=== PATIENT | male | born 1960 | race Hispanic/Latino ===

== ENCOUNTER 2017-09-03 08:22 | Day surgery (SDC) | payer OTHER ==
[2017-09-02 16:05] VITALS: BMI 28.8
[~2017-09-03 08:22] MED LIST: Cyclopentolate 1% Opth Drop 2 ML BOT FS SCH; EPINEPHrine 0.3 MG, Dextrose 50% 3 ML in Ophthalmic Irrigation Solution 500 ML FS SCH; Phenylephrine 2.5% Ophth Soln 5 ML BOT FS SCH
[2017-09-03] MEDS ORDERED: Phenylephrine 2.5% Ophth Soln 5 ML BOT ONE (08:49)
[2017-09-03] MEDS ORDERED: Cyclopentolate 1% Opth Drop 2 ML BOT ONE (08:49)
[2017-09-03] MEDS ORDERED: Metoprolol Tartrate 5 MG/5 ML VIAL ONE (09:26)
[2017-09-03] MEDS ORDERED: Midazolam HCl 2 mg/2 ml Vial ONE (10:16)
[2017-09-03] MEDS ORDERED: Fentanyl 100 MCG/2 ML VIAL ONE (10:16)
[2017-09-03] MEDS ORDERED: PROPOFOL 20 ML ONE (10:16)
[2017-09-03] MEDS ORDERED: Lidocaine 2% 10 ML INJ ONE (10:16)
--- NOTE | 2017-09-03 12:49 | OP ---
DATE OF PROCEDURE: 09/03/2017 PREOPERATIVE DIAGNOSES: Vitreous hemorrhage and proliferative diabetic retinopathy. POSTOPERATIVE DIAGNOSES: Vitreous hemorrhage and proliferative diabetic retinopathy. PROCEDURES PERFORMED: Pars plana vitrectomy and membrane peel, right eye. SURGEON: Trevor Rico M.D. ANESTHESIA: Local with monitored anesthesia care. COMPLICATIONS: None. PROCEDURE IN DETAIL: The patient was identified in the preoperative holding area. Appropriate informed consent for the planned surgical procedure on the right eye had been obtained. The patient was transported to the operative suite where appropriate cardiopulmonary monitoring was e stablished. Local anesthesia was obtained using retrobulbar and modified Van Lint lid block using 50 /50 mixture of 4% lidocaine and 0.75% bupivacaine. The patient was prepped and draped in the usual s terile manner for ophthalmic surgery on the right eye. Lid speculum was placed in the right eye. Th e 25-gauge trocars were placed in conjunctiva and sclera supratemporally, inferotemporally, and supra nasally. Infusion line was placed inferotemporally. Light pipe and vitreous cutter were inserted in to the eye. Core of vitrectomy was performed. Areas of traction were noted on the nerve and inferio r temporally. These were carefully dissected away from the retina and peeled off the retinal surface . Opacified vitreous was trimmed into the periphery. Velarde retinal photocoagulation was placed into a ll non-macular areas of the retina. No further bleeding was identified. Trocars were removed. Eye was noted to retain pressure well. Retrobulbar Kenalog and subconjunctival Ancef were placed. Atrop ine and antibiotic ointment were placed, and the eye was patched and shielded. The patient was taken to the postoperative recovery unit in good condition having suffered no immediate perioperative comp lications. DISCHARGE INSTRUCTIONS: The patient was instructed to keep patch and shield on, avoid lifting or jalil ding, and follow up in the morning with Dr. Rico.
[2017-09-03] MEDS ORDERED: Lidocaine 1% PF 5 ML VIAL ONE (15:34)
[2017-09-03] MEDS ORDERED: PROPOFOL 200 MG/20 ML VIAL ONE (15:34)
== END 2017-09-03 11:55 | disposition home or self-care (01) ==
LOC: SDC 08:22
PROVIDERS: ATTEND Ophthalmology Retina Specialist
PROC: 08T43ZZ Resection of Right Vitreous, Percutaneous Approach (ICD-10-PCS; principal; 2017-09-03)
PROC: 08QE3ZZ Repair Right Retina, Percutaneous Approach (ICD-10-PCS; principal; 2017-09-03)
PROC: 08NE3ZZ Release Right Retina, Percutaneous Approach (ICD-10-PCS; principal; 2017-09-03)
DX: H43.11 Vitreous hemorrhage, right eye (principal); E11.3591 Type 2 diabetes mellitus with proliferative diabetic retinopathy without macular edema, right eye; Z79.02 Long term (current) use of antithrombotics/antiplatelets; Z79.4 Long term (current) use of insulin; Z79.899 Other long term (current) drug therapy
CPT/HCPCS: 36416; J0171; J2001; J2250; J2704; J3010

== ENCOUNTER 2018-01-08 13:07 | Outpatient (CLI) | payer OTHER | END 2018-01-08 13:08 | disposition home or self-care (01) | LOC: BICULT 13:07 | PROVIDERS: ATTEND Internal Medicine Nephrology | DX: I12.9 Hypertensive chronic kidney disease with stage 1 through stage 4 chronic kidney disease, or unspecified chronic kidney disease (principal); N18.3 Chronic kidney disease, stage 3 (moderate); Z87.442 Personal history of urinary calculi | CPT/HCPCS: 76700; 76770 ==

== ENCOUNTER 2019-03-31 08:00 | Day surgery (SDC) | payer BC ==
[2019-03-30 13:48] VITALS: BMI 31.1
[2019-03-31 08:28] LABS: INR-International Normal Ratio 1.1; Prothrombin Time 14.3 SEC (12.0-14.7)
[2019-03-31 08:30] LABS: #Eosinphils 0.2 thou/uL (0.0-0.7); #Lymphocytes 1.5 thou/uL (1.20-3.40); #Monocytes 0.8 thou/uL (0.11-0.59); #Neutrophils 6.3 thou/uL (1.40-6.50); %Basophils 0.5 % (0.0-1.0); %Eosinophils 2.2 % (0.0-10.0); %Lymphocytes 17.3 % (21.0-51.0); %Monocytes 9.1 % (0.0-10.0); %Neutrophils 70.9 % (42.0-75.0); Hemoglobin 10.2 g/dL (14.0-18.0); Mean Corpuscular HGB CONC 33.2 g/dL (32.0-36.0); Mean Corpuscular Hemoglobin 30.8 pg (27.0-31.0); Mean Corpuscular Volume 92.7 fL (78.0-98.0); Mean Platelet Volume 8.2 fL (7.4-10.4); Platelet Count 250 thou/uL (130-400); RBC Distribution Width 12.6 % (11.5-14.5); Red Blood Cell (RBC) Count 3.32 mill/uL (4.70-6.10); White Blood Cell (WBC) Count 8.9 thou/uL (4.8-10.8)
[2019-03-31 08:38] LABS: PTT 36.4 SEC (22.9-36.1)
--- NOTE | 2019-03-31 14:31 | CT ---
EXAM: CT Renal Perc Biopsy PROVIDED CLINICAL HISTORY: Chronic kidney disease, hypertension, proteinuria. COMPARISON: None TECHNIQUE: The procedure including the risks and complications were explained to the patient, and informed conse nt was obtained. The patient was placed on the CT scan table in the prone position. A limited noncontrasted CT scan was obtained through the level of the kidneys with grid localizer in place. An area overlying the inferior pole left kidney was marked, and the area was then meticulously prepped and draped in the usual sterile fashion. Conscious sedation was performed with intravenous administra tion of fentanyl and Versed. The skin and subcutaneous tissues were infiltrated with buffered 1% lidocaine for local anesthesia at the intended puncture site. A small skin incision was made. A 17-gauge guide needle was advanced followed by noncontrasted axial CT images. This was repeated until the needle was positioned within t he most peripheral aspect of the inferior pole right renal cortex. A total of three 18-gauge core needle biopsy specimens were obtained utilizing coaxial technique. Specimens were evaluated by the pa thologist, and glomeruli were seen within the provided specimens. The needle was removed, and hemostasis was achieved with direct pressure. Follow-up CT imaging demons trates no perinephric hematoma or fluid. Patient's vital signs remained stable during the procedure as well as postprocedure. The patient tolerated the procedure well and without immediate complication . Patient was monitored in the radiology department prior to discharge without complication. IMPRESSION: Technically successful CT-guided percutaneous biopsy inferior pole left kidney.
== END 2019-03-31 13:30 | disposition home or self-care (01) ==
LOC: CT 08:00
PROVIDERS: ATTEND Internal Medicine Nephrology
PROC: 0TB13ZX Excision of Left Kidney, Percutaneous Approach, Diagnostic (ICD-10-PCS; principal; 2019-03-31)
DX: I12.9 Hypertensive chronic kidney disease with stage 1 through stage 4 chronic kidney disease, or unspecified chronic kidney disease (principal); E11.22 Type 2 diabetes mellitus with diabetic chronic kidney disease; E11.21 Type 2 diabetes mellitus with diabetic nephropathy; E11.69 Type 2 diabetes mellitus with other specified complication; N18.4 Chronic kidney disease, stage 4 (severe); D63.1 Anemia in chronic kidney disease; M86.9 Osteomyelitis, unspecified; N20.0 Calculus of kidney; E55.9 Vitamin D deficiency, unspecified; E78.5 Hyperlipidemia, unspecified; F32.9 Major depressive disorder, single episode, unspecified
CPT/HCPCS: 36415; 50200; 77012; 85025; 85610; 85730; 88329

== ENCOUNTER 2019-09-28 12:14 | Outpatient (CLI) | payer BC ==
--- NOTE | 2019-09-28 12:26 | RAD ---
RADIOGRAPH CHEST 2 VIEWS: DATE: 09/28/2019 HISTORY: 59-year-old male with hypertension FINDINGS: The lungs are clear. The cardiomediastinal silhouette and hilar shadows appear normal. There is no pl eural effusion or pneumothorax.. IMPRESSION: Normal
== END 2019-09-28 12:15 | disposition home or self-care (01) ==
LOC: BICRAD 12:14
PROVIDERS: ATTEND Internal Medicine Nephrology
DX: I12.0 Hypertensive chronic kidney disease with stage 5 chronic kidney disease or end stage renal disease (principal); N18.5 Chronic kidney disease, stage 5
CPT/HCPCS: 36415; 71046; 80053; 85025; 86704; 86706; 86803; 87340

== ENCOUNTER 2019-10-12 06:11 | Outpatient (CLI) | payer BC, OTHER ==
[2019-10-12 09:30] LABS: #Basophils 0.1 thou/uL (0.0-0.2); #Eosinphils 0.2 thou/uL (0.0-0.7); #Lymphocytes 1.6 thou/uL (1.20-3.40); #Monocytes 0.6 thou/uL (0.11-0.59); #Neutrophils 5.3 thou/uL (1.40-6.50); %Basophils 0.8 % (0.0-1.0); %Eosinophils 2.4 % (0.0-10.0); %Lymphocytes 20.9 % (21.0-51.0); %Monocytes 7.3 % (0.0-10.0); %Neutrophils 68.6 % (42.0-75.0); Hemoglobin 9.5 g/dL (14.0-18.0); Mean Corpuscular HGB CONC 32.7 g/dL (32.0-36.0); Mean Corpuscular Hemoglobin 30.4 pg (27.0-31.0); Mean Corpuscular Volume 92.9 fL (78.0-98.0); Mean Platelet Volume 8.9 fL (7.4-10.4); Platelet Count 267 thou/uL (130-400); RBC Distribution Width 13.5 % (11.5-14.5); Red Blood Cell (RBC) Count 3.13 mill/uL (4.70-6.10); White Blood Cell (WBC) Count 7.7 thou/uL (4.8-10.8)
[2019-10-12 09:59] LABS: Anion Gap 13 mmol/L (10-20); BUN (Urea Nitrogen) 61 mg/dL (8.4-25.7); Calc. Creatinine Clearance 0 mL/min (70-130); Calcium 7.9 mg/dL (7.8-10.44); Carbon Dioxide 17 mmol/L (22-29); Chloride 115 mmol/L (98-107); Estimated GFR-MDRD 12; Glucose 118 mg/dL (70-105); Potassium 4.8 mmol/L (3.5-5.1); Sodium 140 mmol/L (136-145)
[2019-10-12 17:16] LABS: SARS-CoV-2 MS2 Positive; SARS-CoV-2 N Gene Negative; SARS-CoV-2 S Gene Negative; SARS-CoV-2 orf1ab Negative
== END 2019-10-12 06:12 | disposition home or self-care (01) ==
LOC: LABBT 06:11
PROVIDERS: ATTEND Specialist
DX: Z01.818 Encounter for other preprocedural examination (principal); Z11.59 Encounter for screening for other viral diseases; N18.9 Chronic kidney disease, unspecified
CPT/HCPCS: 80048; 85025; 87635; 93005; 93010; U0003

== ENCOUNTER 2019-10-14 05:50 | Day surgery (SDC) | payer BC ==
[2019-10-12 08:48] VITALS: BMI 30.9
--- NOTE | 2019-10-14 06:40 | HP ---
HISTORY OF PRESENT ILLNESS: Kp Abbott is a 59-year-old male patient, who has not yet started dialysis, is followed by Dr. Mike for his chronic kidney disease. He has chronic kidney disease due to hypertensive and diabetic nephropathy. He is an insulin-dependent diabetic. The patient is interested in peritoneal dialysis. He has seen Margareth at [facility] and began discussions. He is here today to discuss peritoneal dialysis. As stated above, he is left-handed and plan at this time is for laparoscopic peritoneal dialysis catheter and right arm primary fistula. He understands risks and benefits of procedure and consents. ALLERGIES: NONE. SOCIAL HISTORY: Tobacco cessation many years ago. Alcohol, rarely. PAST MEDICAL HISTORY: Hypertension, insulin-dependent diabetes mellitus since 1994, hyperlipidemia, chronic kidney disease, PAD with right lower extremity stent placed to facilitate healing after a toe amputation. PAST SURGICAL HISTORY: Toe amputation, peripheral artery stent, eye surgery. He had a colonoscopy several years ago. FAMILY HISTORY: The patient is , has two children, connected to [facility], [address] [place] [address]. 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 MEDICATIONS: 1. Fish oil. 2. Cinnamon pills. 3. Vitamin C. 4. Aspirin. 5. Lantus insulin a.m. 6. Sertraline 50 mg a day. 7. D3 vitamin. 8. Clonidine 0.1 mg b.i.d. 9. Carvedilol 25 mg b.i.d. 10. Tresiba 10 units a.m. 11. Rosuvastatin 10 mg daily. 12. Amlodipine 10 mg a day. 13. Centrum Silver daily. 14. Plavix 75 mg a day. 15. Glyburide 5 mg b.i.d. 16. Losartan 100 mg daily. 17. Hydralazine 25 mg t.i.d. with food. CARDIAC: The patient had a cardiac stress test by Dr. Mota 2 years ago. Last year at [facility], he had a cardiac evaluation and another stress test and was told his heart was normal. REVIEW OF SYSTEMS: Ten-point otherwise noncontributory. PHYSICAL EXAMINATION: VITAL SIGNS: Weight 228 pounds. Blood pressure 147/63, pulse 67, temperature 98 degrees. HEAD, EARS, EYES, NOSE, AND THROAT: Unremarkable. LUNGS: Clear to auscultation. CARDIAC: Regular rate and rhythm without murmur or gallop. ABDOMEN: Soft and nontender. Diastasis recti. EXTREMITIES: Palpable radial and ulnar pulses in both upper extremities. No ankle edema. ASSESSMENT AND PLAN: 1. Chronic kidney disease, in need of dialysis access for future dialysis. We will plan on laparoscopic peritoneal dialysis catheter, right arm fistula under general anesthesia outpatient. He understands risks and benefits. 2. On aspirin and Plavix, continue these. 3. PAD. 4. Insulin-dependent diabetes mellitus. 5. Hypertension. The patient understands risks and benefits of procedure and consents. Job ID: [id number]
[2019-10-14] MEDS ORDERED: Dextrose 50% Abboject 50 ML SYRINGE ONE (07:46)
[2019-10-14] MEDS ORDERED: Heparin 10,000 UNITS/1 ML VIAL ONE (09:34)
[2019-10-14] MEDS ORDERED: Bupivacaine 0.25% HCL 30 ML VIAL ONE (09:34)
[2019-10-14] MEDS ORDERED: Protamine Sulfate 50 MG/5 ML VIAL ONE (09:34)
[2019-10-14] MEDS ORDERED: Heparin 5,000 UNITS/ML VIAL ONE (09:34)
[2019-10-14] MEDS ORDERED: Bupivacaine PF 0.5% 30 ML VIAL ONE (09:34)
[2019-10-14] MEDS ORDERED: Ioversol 68 % 50 ML VIAL ONE (09:34)
[2019-10-14] MEDS ORDERED: Lidocaine 1% w/Epinephrine 1:100K 20 ML VIAL ONE (09:34)
[2019-10-14] MEDS ORDERED: Fentanyl 250 MCG/5 ML VIAL ONE (09:35)
[2019-10-14] MEDS ORDERED: Metoclopramide HCl 10 MG/2 ML VIAL ONE (12:19)
[2019-10-14] MEDS ORDERED: EPHEDRINE 25 MG/5 ML SYRINGE ONE (12:19)
[2019-10-14] MEDS ORDERED: Rocuronium Bromide 10 MG/ML (10ML VIAL) ONE (12:19)
[2019-10-14] MEDS ORDERED: Ondansetron PF 4 MG/2 ML Vial ONE (12:19)
[2019-10-14] MEDS ORDERED: PROPOFOL 200 MG/20 ML VIAL ONE (12:19)
[2019-10-14] MEDS ORDERED: Lidocaine 1% PF 5 ML VIAL ONE (12:19)
--- NOTE | 2019-10-14 16:18 | OP ---
DATE OF PROCEDURE: 10/14/2019 PREOPERATIVE DIAGNOSES: 1. Chronic kidney disease. 2. Need to start dialysis. POSTOPERATIVE DIAGNOSES: 1. Chronic kidney disease. 2. Need to start dialysis. PROCEDURES PERFORMED: 1. Laparoscopic peritoneal dialysis catheter. 2. Laparoscopic omentopexy. 3. Laparoscopic adhesiolysis, (omentum attached to the pelvis). 4. Right arm primary fistula, antecubital vein to the proximal radial artery to achieve good caliber without flow anomalous via an anterior upper arm distal vein above the antecubital fossa, communicating obliquely medially to the basilic vein and a separate basilic vein more proximally, may need a basilic vein transposition fistula. No communications to the anterior cephalic vein noted. Anterior cephalic vein not identified. ANESTHESIA: General and local with 0.5% Marcaine 30 mL, mixed with 1% Xylocaine with epinephrine 20 mL, total volume used. DESCRIPTION OF PROCEDURE: The patient was taken to the operating room, where under general anesthesia, abdomen and right upper extremity were prepared with ChloraPrep and draped in routine fashion. Local anesthetic was infiltrated in the skin and subcutaneous tissue about the operative site. Bilateral subcostal far lateral incision made. Pneumoperitoneum to 15 mmHg was obtained with a Veress needle, replacing with a 5 port, where the laparoscope inserted. Contralateral subcostal 5 port placed. The omentum was attached to the pelvis. Planned exit site left lower quadrant stab incision made and a counter incision made paraumbilical left paramedian and an 8 mm port placed through this counter incision paraumbilical, directed caudally obliquely toward the pelvis into the rectus sheath, visualized laparoscopically, penetrating the peritoneum dependently towards the pelvis. Grasper applied. Adhesiolysis carried out, freeing the omentum from its attachments to the pelvis using the LigaSure. Omentum was further attached to the sigmoid colon. This was taken down with the LigaSure, reflected cephalad and 2 omentopexy sutures placed with the transabdominal wall fixation technique using 0 Vicryl. Once this was completed, omentum tacked away from the pelvis. Double cuffed pigtail peritoneal dialysis catheter placed with an 8 mm port placed in the internal cuff in the rectus sheath, removing the port and placing a [place] dissector through the planned exit site towards the counter incision, grasping the catheter, placed an external cuff beneath the skin and the subcutaneous tissue just below the exit site. Catheter flushed with heparinized saline solution with 1000 units of heparin per mL, 10 males, and left to dwell within the catheter. Cap applied. Good hemostasis noted. Liver appeared to be normal grossly. Abdominal cavity was normal. Pneumoperitoneum reduced. All instruments were removed. All skin incisions were approximated with interrupted subdermal 4-0 Monocryl and Opolis glue applied. Sterile dressing applied. Attention was then turned to the right arm. A proximal volar incision was made below the antecubital fossa longitudinally, carried down to skin and subcutaneous tissue. Antecubital vein dissected free. It was adequate caliber. Anomalous anatomy identified without direct communication of the cephalic vein in the upper arm. Cephalic vein in the upper arm was not identified or seen. There was no oblique vein from the antecubital area, extending medially towards the basilic vein, and other veins more distally communicating to the basilic vein. Perforating branch dissected free and the branches dissected free, divided between 4-0 silk ties and clips. Proximal radial artery identified surrounding the silastic vessel loop. The patient was given 6000 units of heparin intravenously. After adequate circulation time, the proximal radial artery was clamped proximally and distally and anastomosis formed after the antecubital vein identified and interrogated with coronary dilators, passing coronary dilators from 2 mm to 4 mm coronary dilator as they were noted to pass up the anterior upper arm and obliquely towards the basilic vein without obstruction throughout their length. A 2.5 to 3 cm anastomosis was made to the proximal radial artery, making an arteriotomy sharply and elongated with the Correa scissors and accordingly spatulating an antecubital vein, which had been ligated on the hand side and spatulated and end vein to side proximal radial artery anastomosis completed with continuous suture of 6-0 Prolene. Vascular clamps were released. There was excellent flow in the fistula evident by Doppler interrogation. Again, there was no communication to the cephalic vein in the upper arm. Cephalic vein was not seen, seeing that all communication was to the basilic vein. Branches to the deep system were divided between 4-0 silk ties, anticipating the patient will need a basilic vein transposition fistula if this is to be done in the future. Good hemostasis noted. Subcutaneous tissue was approximated with 3-0 Monocryl, skin with subdermal 4-0 Monocryl, and Opolis glue applied. Job ID: [id number]
== END 2019-10-14 14:38 | disposition home or self-care (01) ==
LOC: SDC 05:50
PROVIDERS: ATTEND Specialist
PROC: 0WHG33Z Insertion of Infusion Device into Peritoneal Cavity, Percutaneous Approach (ICD-10-PCS; principal; 2019-10-14)
PROC: 031B3ZF Bypass Right Radial Artery to Lower Arm Vein, Percutaneous Approach (ICD-10-PCS; principal; 2019-10-14)
DX: I12.9 Hypertensive chronic kidney disease with stage 1 through stage 4 chronic kidney disease, or unspecified chronic kidney disease (principal); E11.22 Type 2 diabetes mellitus with diabetic chronic kidney disease; N18.9 Chronic kidney disease, unspecified; I73.9 Peripheral vascular disease, unspecified; E78.5 Hyperlipidemia, unspecified; M62.08 Separation of muscle (nontraumatic), other site; Z79.4 Long term (current) use of insulin; Z79.82 Long term (current) use of aspirin; Z79.899 Other long term (current) drug therapy
CPT/HCPCS: 36416; J0690; J1644; J2001; J2405; J2704; J2720; J2765; J3010; Q9967; S0020

== ENCOUNTER 2020-07-14 22:30 | Emergency (ER) | payer BC, MEDICARE ==
[2020-07-14] MEDS ORDERED: diphenhydrAMINE 50 MG/ML VIAL ONE (22:43)
[2020-07-14] MEDS ORDERED: Metoclopramide HCl 10 MG/2 ML VIAL ONE (22:43)
[2020-07-14] MEDS ORDERED: Promethazine HCl 25 MG/ML VIAL ONE (22:46)
[2020-07-14] MEDS ORDERED: Acetaminophen 500 MG TAB ONE (22:46)
[2020-07-14 23:08] LABS: #Lymphocytes 0.9 thou/uL (1.20-3.40); #Monocytes 0.6 thou/uL (0.11-0.59); #Neutrophils 8.3 thou/uL (1.40-6.50); %Basophils 0.1 % (0.0-1.0); %Eosinophils 0.1 % (0.0-10.0); %Lymphocytes 8.9 % (21.0-51.0); %Neutrophils 84.9 % (42.0-75.0); Mean Corpuscular HGB CONC 32.4 g/dL (32.0-36.0); Mean Corpuscular Hemoglobin 30.5 pg (27.0-31.0); Mean Corpuscular Volume 94.2 fL (78.0-98.0); Mean Platelet Volume 9.5 fL (7.4-10.4); Platelet Count 221 thou/uL (130-400); RBC Distribution Width 14.7 % (11.5-14.5); Red Blood Cell (RBC) Count 3.61 mill/uL (4.70-6.10); White Blood Cell (WBC) Count 9.8 thou/uL (4.8-10.8)
[2020-07-14 23:28] LABS: ALT (SGPT) 20 U/L (8-55); AST (SGOT) 35 U/L (5-34); Albumin 2.9 g/dL (3.5-5.0); Alkaline Phosphatase 65 U/L (40-110); Anion Gap 18 mmol/L (10-20); BUN (Urea Nitrogen) 80 mg/dL (8.4-25.7); Bilirubin, Total 0.4 mg/dL (0.2-1.2); Calc. Creatinine Clearance 0 mL/min (70-130); Calcium 6.2 mg/dL (7.8-10.44); Carbon Dioxide 18 mmol/L (22-29); Chloride 108 mmol/L (98-107); Globulin 3.7 g/dL (2.4-3.5); Glucose 265 mg/dL (70-105); Lipase 96 U/L (8-78); Potassium 5.1 mmol/L (3.5-5.1); Protein, Total 6.6 g/dL (6.0-8.3); Sodium 139 mmol/L (136-145)
== END 2020-07-15 00:31 | disposition home or self-care (01) ==
LOC: ERS 22:30
DX: R11.0 Nausea (principal); R51.9 Headache, unspecified; E11.22 Type 2 diabetes mellitus with diabetic chronic kidney disease; I12.0 Hypertensive chronic kidney disease with stage 5 chronic kidney disease or end stage renal disease; N18.6 End stage renal disease; E78.5 Hyperlipidemia, unspecified; Z99.2 Dependence on renal dialysis
CPT/HCPCS: 36415; 80053; 83690; 85025; 93005; 96365; J1200; J2550; J2765

== ENCOUNTER 2020-07-15 21:38 | Emergency (ER) | payer BC, MEDICARE ==
--- NOTE | 2020-07-15 22:17 | RAD ---
SINGLE VIEW CHEST: Date: 07/15/2020 COMPARISON: 09/28/2019. HISTORY: Dialysis patient with fever, weakness, and diarrhea. FINDINGS: Single view of the chest shows an enlarged cardiomediastinal silhouette. There are diffuse scattered multifocal infiltrates in the lungs peripherally consistent with COVID pneumonia. No pleural effusion is seen. The bones are unremarkable. IMPRESSION: Multifocal infiltrates are consistent with COVID pneumonia. POS: [facility]
[2020-07-15 22:27] LABS: #Lymphocytes 0.6 thou/uL (1.20-3.40); #Monocytes 0.7 thou/uL (0.11-0.59); #Neutrophils 9.8 thou/uL (1.40-6.50); %Basophils 0.2 % (0.0-1.0); %Eosinophils 0.2 % (0.0-10.0); %Lymphocytes 5.2 % (21.0-51.0); %Neutrophils 88.5 % (42.0-75.0); Hemoglobin 10.6 g/dL (14.0-18.0); Mean Corpuscular HGB CONC 32.4 g/dL (32.0-36.0); Mean Corpuscular Hemoglobin 30.5 pg (27.0-31.0); Mean Corpuscular Volume 94.1 fL (78.0-98.0); Mean Platelet Volume 9.7 fL (7.4-10.4); Platelet Count 204 thou/uL (130-400); RBC Distribution Width 14.6 % (11.5-14.5); Red Blood Cell (RBC) Count 3.47 mill/uL (4.70-6.10)
[2020-07-15 22:47] LABS: ALT (SGPT) 18 U/L (8-55); AST (SGOT) 26 U/L (5-34); Albumin 2.8 g/dL (3.5-5.0); Alkaline Phosphatase 56 U/L (40-110); Anion Gap 17 mmol/L (10-20); BUN (Urea Nitrogen) 73 mg/dL (8.4-25.7); Bilirubin, Total 0.4 mg/dL (0.2-1.2); CK (CPK) 424 U/L (30-200); Calc. Creatinine Clearance 0 mL/min (70-130); Carbon Dioxide 19 mmol/L (22-29); Chloride 107 mmol/L (98-107); Globulin 3.2 g/dL (2.4-3.5); Glucose 130 mg/dL (70-105); Lipase 72 U/L (8-78); Potassium 5.5 mmol/L (3.5-5.1); Sodium 137 mmol/L (136-145)
[2020-07-15 23:21] LABS: SARS-CoV-2 NAA Rapid Test DETECTED (NotDetected)
[2020-07-15 23:51] LABS: CKMB 2.3 ng/mL (0-6.6)
== END 2020-07-16 00:31 | disposition home or self-care (01) ==
LOC: ERS 21:38
DX: U07.1 COVID-19 (principal); J12.82 Pneumonia due to coronavirus disease 2019; I12.0 Hypertensive chronic kidney disease with stage 5 chronic kidney disease or end stage renal disease; E11.22 Type 2 diabetes mellitus with diabetic chronic kidney disease; N18.6 End stage renal disease; E78.5 Hyperlipidemia, unspecified; Z99.2 Dependence on renal dialysis
CPT/HCPCS: 0240U; 36415; 71045; 80053; 82550; 82553; 83605; 83690; 83880; 84145; 84484; 85025; 85379; 87040; 93005

== ENCOUNTER 2020-08-22 14:54 | Emergency (ER) | payer BC, MEDICARE | END 2020-08-22 16:40 | disposition home or self-care (01) | LOC: ERS 14:54 | DX: E11.621 Type 2 diabetes mellitus with foot ulcer (principal); E11.22 Type 2 diabetes mellitus with diabetic chronic kidney disease; I12.0 Hypertensive chronic kidney disease with stage 5 chronic kidney disease or end stage renal disease; N18.6 End stage renal disease; E78.5 Hyperlipidemia, unspecified; Z99.2 Dependence on renal dialysis; Z79.84 Long term (current) use of oral hypoglycemic drugs; Z79.899 Other long term (current) drug therapy; Z00.00 Encounter for general adult medical examination without abnormal findings | CPT/HCPCS: 36415; 80053; 80061; 81001; 82043; 83036; 85025 ==

== ENCOUNTER 2021-12-18 09:21 | Emergency (ER) | payer BC, MEDICARE ==
[2021-12-18] MEDS ORDERED: HYDROcodone/Acetaminophen 5/325 mg Tablet ONE (10:50)
== END 2021-12-18 11:10 | disposition home or self-care (01) ==
LOC: ERS 09:21
DX: B02.9 Zoster without complications (principal); I12.0 Hypertensive chronic kidney disease with stage 5 chronic kidney disease or end stage renal disease; E11.22 Type 2 diabetes mellitus with diabetic chronic kidney disease; N18.6 End stage renal disease; E78.5 Hyperlipidemia, unspecified; Z99.2 Dependence on renal dialysis; Z79.4 Long term (current) use of insulin; Z79.82 Long term (current) use of aspirin; Z79.899 Other long term (current) drug therapy

== ENCOUNTER 2022-02-18 10:58 | Outpatient (CLI) | payer BC, MEDICARE ==
[2022-02-18 12:32] LABS: #Basophils 0.1 10x3/uL (0.0-0.2); #Eosinphils 0.2 10x3/uL (0.0-0.5); #Monocytes 0.7 10x3/uL (0.0-1.1); #Neutrophils 5.5 10x3/uL (1.5-8.4); %Basophils 0.6 % (0.0-2.0); %Eosinophils 2.6 % (0.0-6.0); %Lymphocytes 19.4 % (18.0-47.0); Hemoglobin 9.7 g/dL (13.5-17.5); Mean Corpuscular HGB CONC 33.1 g/dL (32.0-36.0); Mean Corpuscular Hemoglobin 33.8 pg (27.0-33.0); Mean Corpuscular Volume 102.1 fl (81.2-95.1); Mean Platelet Volume 11.2 fl (7.4-10.4); Platelet Count 352 10x3/uL (150-450); RBC Distribution Width 15.6 % (11.5-14.5); Red Blood Cell (RBC) Count 2.87 10x6/uL (4.32-5.72); White Blood Cell (WBC) Count 8.1 10x3/uL (3.5-10.5)
[2022-02-18 12:49] LABS: Anion Gap 19 mmol/L (10-20); BUN (Urea Nitrogen) 56 mg/dL (8.4-25.7); Calc. Creatinine Clearance 0 mL/min (70-130); Calcium 8.5 mg/dL (7.8-10.44); Carbon Dioxide 26 mmol/L (22-29); Chloride 99 mmol/L (98-107); Estimated GFR 3; Glucose 281 mg/dL (70-105); Sodium 140 mmol/L (136-145)
== END 2022-02-18 10:59 | disposition home or self-care (01) ==
LOC: LABBT 10:58
PROVIDERS: ATTEND Specialist
DX: Z01.818 Encounter for other preprocedural examination (principal); N18.6 End stage renal disease; Z99.2 Dependence on renal dialysis; Z20.822 Contact with and (suspected) exposure to COVID-19
CPT/HCPCS: 80048; 85025; 87811; 93005; 93010

== ENCOUNTER 2022-02-19 06:45 | Day surgery (SDC) | payer BC, MEDICARE ==
[2022-02-18 11:30] VITALS: BMI 33.5
[2022-02-19] MEDS ORDERED: Fentanyl 100 MCG/2 ML VIAL ONE (09:18)
[2022-02-19] MEDS ORDERED: Heparin 5,000 UNITS/ML VIAL ONE (09:20)
[2022-02-19] MEDS ORDERED: Protamine Sulfate 50 MG/5 ML VIAL ONE (09:20)
[2022-02-19] MEDS ORDERED: Ioversol 68 % 50 ML VIAL ONE (09:21)
[2022-02-19] MEDS ORDERED: Bupivacaine HCl 0.5%/Epinephrine 1:200,000/PF 30 ml Vial ONE ×2 (09:21→09:47)
[2022-02-19] MEDS ORDERED: Propofol 1,000 MG/100 ML VIAL IV ONE (09:27)
[2022-02-19] MEDS ORDERED: Sodium Chloride 0.9% 100 ML ONE (09:31)
[2022-02-19] MEDS ORDERED: CEFAZOLIN 2 GM VIAL ONE (09:31)
[2022-02-19] MEDS ORDERED: Midazolam HCl 2 mg/2 ml Vial ONE (09:43)
[2022-02-19] MEDS ORDERED: Lidocaine 1% MPF 2 ML VIAL ONE (09:47)
== END 2022-02-19 13:37 | disposition home or self-care (01) ==
LOC: SDC 06:45
PROVIDERS: ATTEND Specialist
PROC: 05SB0ZZ Reposition Right Basilic Vein, Open Approach (ICD-10-PCS; principal; 2022-02-19)
DX: I12.0 Hypertensive chronic kidney disease with stage 5 chronic kidney disease or end stage renal disease (principal); E11.22 Type 2 diabetes mellitus with diabetic chronic kidney disease; N18.6 End stage renal disease; I73.9 Peripheral vascular disease, unspecified; E78.5 Hyperlipidemia, unspecified; Z79.02 Long term (current) use of antithrombotics/antiplatelets; Z79.4 Long term (current) use of insulin; Z79.84 Long term (current) use of oral hypoglycemic drugs; Z79.899 Other long term (current) drug therapy; Z99.2 Dependence on renal dialysis
CPT/HCPCS: 36416; C1713; C1776; J0690; J1644; J2250; J2704; J2720; J3010; J3490; Q9967

== ENCOUNTER 2022-05-06 09:40 | Day surgery (SDC) | payer BC, MEDICARE ==
[2022-05-05 11:32] VITALS: BMI 32.3
[2022-05-06] MEDS ORDERED: CEFAZOLIN 2 GM VIAL ONE (10:27)
[2022-05-06] MEDS ORDERED: Lidocaine 1% MPF 2 ML VIAL ONE (10:27)
[2022-05-06] MEDS ORDERED: Sodium Chloride 0.9% 100 ML ONE (10:27)
[2022-05-06 11:11] LABS: #Eosinphils 0.2 thou/uL (0.0-0.7); #Lymphocytes 2.2 thou/uL (1.20-3.40); #Monocytes 0.6 thou/uL (0.11-0.59); #Neutrophils 3.8 thou/uL (1.40-6.50); %Basophils 0.7 % (0.0-1.0); %Eosinophils 3.1 % (0.0-10.0); %Lymphocytes 31.8 % (21.0-51.0); %Neutrophils 55.4 % (42.0-75.0); Hemoglobin 9.9 g/dL (14.0-18.0); Mean Corpuscular HGB CONC 32.2 g/dL (32.0-36.0); Mean Corpuscular Hemoglobin 32.7 pg (27.0-31.0); Mean Platelet Volume 9.1 fL (7.4-10.4); Platelet Count 296 10x3/uL (130-400); RBC Distribution Width 14.8 % (11.5-14.5); Red Blood Cell (RBC) Count 3.02 mill/uL (4.70-6.10); White Blood Cell (WBC) Count 6.9 10x3/uL (4.8-10.8)
[2022-05-06 11:23] LABS: Anion Gap 16 mmol/L (10-20); BUN (Urea Nitrogen) 52 mg/dL (8.4-25.7); Calc. Creatinine Clearance 12 mL/min (70-130); Calcium 8.7 mg/dL (7.8-10.44); Carbon Dioxide 29 mmol/L (22-29); Chloride 100 mmol/L (98-107); Estimated GFR 6; Glucose 108 mg/dL (70-105); Potassium 4.7 mmol/L (3.5-5.1); Sodium 140 mmol/L (136-145)
[2022-05-06] MEDS ORDERED: fentaNYL PF 100 MCG/2 ML SYRINGE ONE (12:41)
[2022-05-06] MEDS ORDERED: PROPOFOL 200 MG/20 ML VIAL ONE (13:04)
== END 2022-05-06 14:16 | disposition home or self-care (01) ==
LOC: SDC 09:40
PROVIDERS: ATTEND Specialist
PROC: 0WPG03Z Removal of Infusion Device from Peritoneal Cavity, Open Approach (ICD-10-PCS; principal; 2022-05-06)
DX: Z49.02 Encounter for fitting and adjustment of peritoneal dialysis catheter (principal); I12.0 Hypertensive chronic kidney disease with stage 5 chronic kidney disease or end stage renal disease; E11.22 Type 2 diabetes mellitus with diabetic chronic kidney disease; N18.6 End stage renal disease; E78.5 Hyperlipidemia, unspecified; Z79.02 Long term (current) use of antithrombotics/antiplatelets; Z79.4 Long term (current) use of insulin; Z79.82 Long term (current) use of aspirin; Z79.84 Long term (current) use of oral hypoglycemic drugs; Z79.899 Other long term (current) drug therapy
CPT/HCPCS: 36416; 80048; 85025; J2704; J3490